=== PATIENT | male | born 1965 | race Caucasian/White ===

== ENCOUNTER 2023-12-28 05:52 | Day surgery (SDC) | payer MEDICARE, MEDICAID ==
[2023-12-18 14:57] LABS: BASOPHILS # (AUTO) 0.1 X10'3 (0-0.2); BASOPHILS % (AUTO) 0.8 % (0-1); EOSINOPHILS # (AUTO) 0.8 X10'3 (0-0.9); EOSINOPHILS % (AUTO) 7.5 % (0-6); LYMPHOCYTES # (AUTO) 5.6 X10'3 (1.1-4.8); LYMPHOCYTES % (AUTO) 49.9 % (21-51); MEAN CORPUSCULAR HEMOGLOBIN 32.9 PG (27.0-31.0); MEAN CORPUSCULAR HGB CONC 33.5 g/dL (33.0-36.5); MEAN CORPUSCULAR VOLUME 98.2 FL (78-98); MEAN PLATELET VOLUME 7.6 FL (7.4-10.4); MONOCYTES # (AUTO) 0.9 X10'3 (0-0.9); MONOCYTES % (AUTO) 7.6 % (2-12); NEUTROPHILS # (AUTO) 3.9 X10'3 (1.8-7.7); NEUTROPHILS % (AUTO) 34.2 % (42-75); PRE OP HEMATOCRIT 42.3 % (42.0-52.0); PRE OP HEMOGLOBIN 14.1 g/dL (14.0-17.9); PRE OP PLATELET COUNT 337 X10'3 (140-440); PRE OP WHITE BLOOD COUNT 11.3 10'3 (4.8-10.8)
[2023-12-18 15:00] LABS: ALBUMIN 3.7 G/DL (3.4-5.0); ALBUMIN/GLOBULIN RATIO 0.9 (1.1-1.5); ALKALINE PHOSPHATASE 102 IU/L (46-116); BLOOD UREA NITROGEN 8 MG/DL (7-18); CALCIUM 8.9 MG/DL (8.5-10.1); CHLORIDE 107 MMOL/L (99-107); PRE OP ALT 24 U/L (30-65); PRE OP ANION GAP 6 (8-16); PRE OP AST 19 U/L (10-37); PRE OP BILIRUB, TOTAL 0.4 MG/DL (0.0-1.0); PRE OP GLUCOSE 119 MG/DL (70-104); PRE OP POTASSIUM 4.3 MMOL/L (3.4-5.1); PRE OP SODIUM 141 MMOL/L (135-145); TOTAL CARBON DIOXIDE 27.9 MMOL/L (24-32); TOTAL PROTEIN 7.6 G/DL (6.4-8.2); eGFR 77 ML/MIN
[~2023-12-28] VITALS: Ht 172.7 cm; Wt 75.1 kg
[2023-12-28] VITALS (7 sets, daily range): BP systolic 111–150; BP diastolic 76–95; PULSE 53–60; RESP 10–16; TEMP 97.4; O2SAT 93–97
[~2023-12-28 05:52] MED LIST: ASPI81TA52 PO; CETI-90 PO; DIPH25CA83 PO; EZET10TA48 PO; HYDR-3973 PO; LIPA1CAP18 PO; LISI10TA27 PO; NEBI10TA10 PO; OMEG-270 PO; PANT40TA54 PO; SIME125C PO
[2023-12-28] MEDS: ceFAZolin 2gm in dextrose, iso 50 ML IV ONE (06:29)
[2023-12-28] MEDS: famotidine 20mg tablet PO ONE (06:29)
[2023-12-28] MEDS: ringers solution, lacted 1,000 ML IV SCH (06:29)
[2023-12-28] MEDS: DOCUMENT DATE & TIME OF BETA-BLOCKER PO ONE (06:30)
[2023-12-28] MEDS ORDERED: BUPIVAcaine 2.5mg/ml inj 50ml vial (contains preservative) ONE (06:36)
[2023-12-28] MEDS ORDERED: LIDOcaine 2% (20mg/ml) 5ml vial ONE (06:36)
[2023-12-28] MEDS ORDERED: fentaNYL/PF 50MCG/1 ML 2ML syringe ONE (07:42)
[2023-12-28] MEDS ORDERED: midazolam 1 mg/ML 2ml injection ONE (07:42)
[2023-12-28] MEDS ORDERED: LIDOcaine 0.5% (5mg/ml) 50ml vial ONE (07:44)
[2023-12-28] MEDS ORDERED: proCHLORperazine 10 MG/2 ml inj IV PRN (07:50)
[2023-12-28] MEDS ORDERED: ondansetron/PF 4mg/2ml inj IV PRN (07:50)
[2023-12-28] MEDS ORDERED: meperidine/PF 25mg/ml syringe IV PRN ×3 (07:50)
[2023-12-28] MEDS ORDERED: ringers solution, lacted 1,000 ML IV SCH (07:50)
[2023-12-28] MEDS ORDERED: propofol inj 20 ML IV ONE (08:03)
[2023-12-28] MEDS: BUPIVAcaine 2.5mg/ml inj 50ml vial (contains preservative) SQ ONE ×2 (08:11→08:30)
== END 2023-12-28 09:36 | disposition home or self-care (01) ==
LOC: PAS 05:52
PROVIDERS: ATTEND Orthopaedic Surgery Hand Surgery
DX: G56.01 Carpal tunnel syndrome, right upper limb (principal); M72.0 Palmar fascial fibromatosis [Dupuytren]; M65.311 Trigger thumb, right thumb; M65.321 Trigger finger, right index finger; M65.341 Trigger finger, right ring finger; M65.351 Trigger finger, right little finger; I10 Essential (primary) hypertension; I25.10 Atherosclerotic heart disease of native coronary artery without angina pectoris; E78.5 Hyperlipidemia, unspecified; K21.9 Gastro-esophageal reflux disease without esophagitis; F41.9 Anxiety disorder, unspecified; G47.33 Obstructive sleep apnea (adult) (pediatric); I25.2 Old myocardial infarction; Z87.442 Personal history of urinary calculi; Z79.82 Long term (current) use of aspirin; Z79.891 Long term (current) use of opiate analgesic; Z79.899 Other long term (current) drug therapy; Z90.49 Acquired absence of other specified parts of digestive tract; Z90.81 Acquired absence of spleen; Z95.1 Presence of aortocoronary bypass graft; Z95.5 Presence of coronary angioplasty implant and graft; Z98.890 Other specified postprocedural states; Z88.0 Allergy status to penicillin; Z88.5 Allergy status to narcotic agent; Z91.040 Latex allergy status; Z88.8 Allergy status to other drugs, medicaments and biological substances; Z83.3 Family history of diabetes mellitus
CPT/HCPCS: 26055; 26121; 64721; 80053; 82948; 85025; A4215; A6449; J0690; J2003; J2250; J2704; J3010; J3490; J7030; J7120; Z7506; Z7512; Z7610